=== PATIENT | male | born 1980 | race Caucasian/White ===

== ENCOUNTER → 2019-04-23 13:39 | Outpatient (BNVA) | payer OTHER, SELFPAY | PROVIDERS: Family Provider General Practice; PCP Family Medicine; Visit Provider Nurse Practitioner | DX: R50.9 Fever, unspecified (principal); J10.1 Influenza due to other identified influenza virus with other respiratory manifestations | CPT/HCPCS: 87804 ==

== ENCOUNTER 2023-01-05 21:00 | Emergency (ER) | payer SELFPAY ==
[2023-01-05 21:08] VITALS: BP 130/79; PULSE 89; RESP 24; TEMP 37.1; O2SAT 99; BMI 25.8
--- NOTE | 2023-01-05 21:18 | XRR_ITS ---
PROCEDURE INFORMATION: Exam: XR Left Forearm Exam date and time: 01/05/2023 9:34 PM Age: 42 years old Clinical indication: Injury or trauma; Fall; Blunt trauma (contusions or hematomas); Arm, lower; Left TECHNIQUE: Imaging protocol: Radiologic exam of the left forearm. Views: 2 views. COMPARISON: No relevant prior studies available. FINDINGS: Bones/joints: No acute fracture or dislocation is noted. The skeletal structures seem age-appropriate. Soft tissues: Unremarkable. XR/XR forearm LT 2V [id number] IMPRESSION: No acute findings.
--- NOTE | 2023-01-05 21:18 | CTR_ITS ---
PROCEDURE INFORMATION: Exam: CT Maxillofacial Without Contrast; Mandible Exam date and time: 01/05/2023 9:25 PM Age: 42 years old Clinical indication: Injury or trauma; Fall; Blunt trauma (contusions or hematomas); Right; Prior surgery; Surgery date: 6+ months; Surgery type: Oral rods; Patient HX: Fell off a tralier and hit jaw TECHNIQUE: Imaging protocol: Computed tomography maxillofacial without contrast. Exam focused on the mandible. Radiation optimization: All CT scans at this facility use at least one of these dose optimization techniques: automated exposure control; mA and/or kV adjustment per patient size (includes targeted exams where dose is matched to clinical indication); or iterative reconstruction. REPORTING DATA: Count of CT and Cardiac NM exams in prior 12 months: This patient has received 0 known CTs and 0 known cardiac nuclear medicine studies in the 12 months prior to the current study. COMPARISON: No relevant prior studies available. RADIATION DOSE METRICS: Total DLP (mGy-cm): 595 FINDINGS: Bones/joints: Mandible is unremarkable. No acute fracture. The patient is edentulous. Oral rods are present. Paranasal sinuses: No air-fluid levels. Only trace right lower maxillary sinus mucosal thickening. Soft tissues: Unremarkable. CT/CT facial bones wo con* [id number] IMPRESSION: Unremarkable mandible.
--- NOTE | 2023-01-05 21:21 | W.ED.TRAUMA ---
HPI - Trauma General: Chief Complaint: Trauma Stated Complaint: hurt mouth and left arm Time Seen by Provider: 01/05/23 21:07 Source: patient Mode of arrival: ambulatory Limitations: no limitations History of Present Illness: 42-year-old male states that he is unloading a trailer and fell he states he hit his right side very distraught when he had fell onto the trailer he has jaw pain he rates an 8 out of 10 denies hitting his head denies any headache denies any neck pain he states he also hit his left arm has a contusion to left forearm he has some mild pain there is full range of motion. Associated symptoms: Denies abdominal pain, back pain, chest pain, chills, dental pain, fever(s), headache(s), nausea or vomiting Review of Systems Const: Denies: fever(s) or chills Eyes: Denies: blurry vision or eye discomfort ENMT: Denies: throat pain or dental pain Card: Denies: chest pain Resp: Denies: dyspnea GI: Denies: abdominal pain, nausea, vomiting or diarrhea Musc: Reports: extremity pain; Denies: neck pain or back pain Skin/Breast: Denies: rash Neuro: Denies: headache(s) PFSH ED PFSH: Social History Smoking and tobacco/nicotine status: current every day tobacco/nicotine user Physical Exam Const: COMMON NORMALS: no acute distress, patient oriented x3 and healthy appearing HENMT: COMMON NORMALS: normocephalic and atraumatic HEAD & SCALP: normocephalic and atraumatic OTHER: Tenderness over right jaw patient has dentures in place Eye: COMMON NORMALS: Equal, round and reactive pupils present and EOMs intact bilaterally PUPIL: Yes Equal, round and reactive pupils present Neck/C-Spine: COMMON NORMALS: full ROM and supple Chest: COMMONS NORMALS: normal inspection of the chest and normal palpation of entire chest wall Resp: COMMON NORMALS: normal respiratory effort, No retractions, No use of accessory muscles and clear to auscultation bilaterally AUSCULTATION: clear to auscultation bilaterally Cardio: COMMON NORMALS: regular rate, regular rhythm and No murmurs present (Cardio) RATE: regular rate RHYTHM: regular rhythm GI: COMMON NORMALS: Normal to inspection, nondistended, normoactive bowel sounds present, Soft to palpation, non-tender and no masses PALPATION: Yes Soft to palpation Extremity: NARRATIVE EXTREMITY EXAM: Contusion to left forearm no obvious deformities has full range of motion Neuro: COMMON NORMALS: patient oriented x3, moves all extremities and no focal motor deficits Psych: COMMON NORMALS: mental status grossly normal, Normal thought process present and cooperative THOUGHT PROCESS: Normal thought process present Skin: COMMON NORMALS: no rashes or lesions noted and no wounds GENERAL SKIN EXAM: no rashes or lesions noted Course Vital Signs: Vital signs: Vital Signs Temperature 98.7 F 01/05/23 21:08 Pulse Rate 89 01/05/23 21:08 Respiratory Rate 24 H 01/05/23 21:08 Blood Pressure 130/79 01/05/23 21:08 Pulse Oximetry 99 01/05/23 21:08 Oxygen Delivery Me thod Room Air 01/05/23 21:08 MDM - Trauma Medical Decision Making Patient presents here with jaw contusion along with arm contusion from a fall CT scan here is normal. She is stable for discharge she is to follow-up with PCP and return if worsening. Medical Records I reviewed the patient's medical records. Lab Data Radiology Impressions Face CT 01/05/23 21:18 IMPRESSION: Unremarkable mandible. Forearm X-Ray 01/05/23 21:18 IMPRESSION: No acute findings. All radiology interpretation(s) finalized by discharge Discharge Plan Discharge Patient Disposition: Home Clinical Impression: Fall, Jaw pain, Contusion Condition: Stable Prescriptions: New hydrocodone-acetaminophen 5-325 mg tablet 1 tab PO Q6H PRN (Reason: pain) Qty: 14 0RF No Action lisinopril 10 mg tablet 10 mg PO DAILY bupropion HCl [Wellbutrin SR] 100 mg tablet sustained-release 12 hr 100 mg PO DAILY Discharge Orders: Discharge ED (Routine); Ordered 01/05/23 Ordered By: Jasson Quigley Referrals: Malaika Christianson MD [Primary Care Provider] - 1-3 days Discharge Diet: Advance as tolerated Discharge Activity: Resume usual activity Patient Instructions: Contusion in Adults (ED) Coding Level of Care Code ED Certified [employer] Pat[employer] for Aurelio Romero
[2023-01-05] MEDS: morphine 4 mg/mL SDV 1 mL IM (21:23)
[2023-01-05 22:36] VITALS: PULSE 84; RESP 16; O2SAT 98
== END 2023-01-05 22:35 | disposition home or self-care (01) ==
PROVIDERS: Emergency Provider Emergency Medicine; PCP Family Medicine
DX: R68.84 Jaw pain (principal); S00.83XA Contusion of other part of head, initial encounter; W19.XXXA Unspecified fall, initial encounter
CPT/HCPCS: 70486; 73090; 96372; 99284; J2270

== ENCOUNTER 2023-11-21 18:56 | Emergency (ER) | payer SELFPAY ==
[2023-11-21 19:05] VITALS: BP 131/71; PULSE 87; RESP 18; TEMP 36.9; O2SAT 98; BMI 25.8
--- NOTE | 2023-11-21 19:09 | XRR_ITS ---
PROCEDURE INFORMATION: Exam: XR Right Tibia and Fibula Exam date and time: 11/21/2023 7:19 PM Age: 43 years old Clinical indication: Right; Patient HX: RT lower leg pain post fall from ladder TECHNIQUE: Imaging protocol: Radiologic exam of the right tibia and fibula. Views: 2 views. COMPARISON: No relevant prior studies available. FINDINGS: Bones/joints: No acute fracture or dislocation. Soft tissues: Soft tissues are unremarkable as visualized. XR/XR tibia fibula RT 2V [id number] IMPRESSION: No acute fracture or dislocation.
--- NOTE | 2023-11-21 19:09 | XRR_ITS ---
PROCEDURE INFORMATION: Exam: XR Left Hand Exam date and time: 11/21/2023 7:19 PM Age: 43 years old Clinical indication: Left; Patient HX: Lt wrist/hand pain post fall from ladder TECHNIQUE: Imaging protocol: Radiologic exam of the left hand. Views: 3 or more views. COMPARISON: CR XR wrist LT min 3V* [id number] 11/21/2023 7:19 PM FINDINGS: Bones/joints: No acute fracture or dislocation. Soft tissues: Soft tissues are unremarkable as visualized. XR/XR hand LT min 3V* [id number] IMPRESSION: No acute fracture or dislocation.
--- NOTE | 2023-11-21 19:09 | XRR_ITS ---
PROCEDURE INFORMATION: Exam: XR Left Wrist Exam date and time: 11/21/2023 7:19 PM Age: 43 years old Clinical indication: Pain; Hand; Left; Additional info: Lt wrist/hand pain post fall from ladder TECHNIQUE: Imaging protocol: Radiologic exam of the left wrist. Views: 3 or more views. COMPARISON: CR XR hand LT min 3V* [id number] 11/21/2023 7:19 PM FINDINGS: Bones/joints: No acute fracture or dislocation. Soft tissues: Soft tissues are unremarkable as visualized. XR/XR wrist LT min 3V* [id number] IMPRESSION: No acute fracture or dislocation.
--- NOTE | 2023-11-21 19:09 | XRR_ITS ---
PROCEDURE INFORMATION: Exam: XR Right Hip Exam date and time: 11/21/2023 7:19 PM Age: 43 years old Clinical indication: Patient HX: Bilateral hip pain post fall from ladder TECHNIQUE: Imaging protocol: Radiologic exam of the right hip. Views: 1 view hip with pelvis when performed. COMPARISON: No relevant prior studies available. FINDINGS: Bones/joints: No acute fracture or dislocation. Soft tissues: Soft tissues are unremarkable as visualized. XR/XR hip RT 2-3V wo/w pel* [id number] IMPRESSION: No acute fracture or dislocation.
--- NOTE | 2023-11-21 19:29 | XRR_ITS ---
PROCEDURE INFORMATION: Exam: XR Left Hip Exam date and time: 11/21/2023 7:34 PM Age: 43 years old Clinical indication: Patient HX: Bilateral hip pain post fall from ladder TECHNIQUE: Imaging protocol: Radiologic exam of the left hip. Views: 2 or 3 views hip with pelvis when performed. COMPARISON: No relevant prior studies available. FINDINGS: Bones/joints: No acute fracture or dislocation. Soft tissues: Soft tissues are unremarkable as visualized. XR/XR hip LT 2-3V wo/w pel* [id number] IMPRESSION: No acute fracture or dislocation.
--- NOTE | 2023-11-22 00:50 | W.ED.FALL ---
HPI - Fall General: Chief Complaint: Fall Stated Complaint: fall, off 15 foot ladder Time Seen by Provider: 11/21/23 23:59 Source: patient Mode of arrival: ambulatory Limitations: no limitations History of Present Illness: Patient is a 43-year-old male present to the emergency department after falling off a ladder yesterday. Fall was approximately 15 feet. States this was accidental, he landed on his tool belt and is having pain to bilateral hips, right lower extremity, and left hand and wrist. No obvious deformity noted on arrival. Does not report taken anything for pain, however he does note significant limited range of motion with his left hand. Did not hit his head or lose consciousness. No other concerning historical factors or symptoms reported at this time. MD complaint: fall Onset (ago): day(s) Fall from: from height (distance) (15 feet) Fall witnessed: yes, by family Place fall occurred: home Loss of consciousness: None Prolonged down time: no Symptoms prior to fall: none Associated symptoms-after fall: Denies abdominal pain, chest pain, headache(s), lightheadedness or neck pain Related Data Home Medications Medication Instructions Recorded Confirmed bupropion HCl 100 mg tablet,12 hr 100 mg PO DAILY 04/23/19 04/23/19 sustained-release (Wellbutrin SR) lisinopril 10 mg tablet 10 mg PO DAILY 04/23/19 04/23/19 Previous Rx's Medication Instructions Recorded hydrocodone 5 mg-acetaminophen 325 1 tab PO Q6H PRN pain #14 tabs 10/16/23 mg tablet Allergies Allergy/AdvReac Type Severity Reaction Status Date / Time No Known Allergies Allergy Verified 04/23/19 13:27 Review of Systems General: Reports: 10 or more systems reviewed and unremarkable except in HPI and below Const: Reports: other (Fall); Denies: fever(s), chills or fatigue Eyes: Denies: change in vision ENMT: Denies: throat pain, ear or mastoid pain or nasal discharge Card: Denies: chest pain, palpitations, swelling of feet/ankles or lightheadedness Resp: Denies: dyspnea, productive cough or wheezing GI: Denies: abdominal pain, nausea, vomiting, diarrhea or constipation : Denies: flank pain, difficulty urinating, dysuria or urinary frequency Musc: Reports: extremity pain (Left hand and right lower extremity) and joint pain (Bilateral hips, left wrist); Denies: neck pain or back pain Skin/Breast: Denies: rash Neuro: Denies: headache(s), numbness in extremities or weakness in extremities PFSH ED PFSH: Social History Smoking and tobacco/nicotine status: current every day tobacco/nicotine user Physical Exam Const: COMMON NORMALS: no acute distress, patient oriented x3 and no limitations GENERAL APPEARANCE: cooperative, comfortable and well developed ORIENTATION/CONSCIOUSNESS: Yes awake, Yes oriented to person, Yes oriented to place and Yes oriented to time HENMT: COMMON NORMALS: normocephalic, atraumatic and hearing grossly normal bilaterally HEAD & SCALP: normocephalic and atraumatic Eye: COMMON NORMALS: Equal, round and reactive pupils present, EOMs intact bilaterally and conjunctivae normal CONJUNCTIVA: Yes conjunctivae normal PUPIL: Yes Equal, round and reactive pupils present Neck/C-Spine: COMMON NORMALS: full ROM, supple and no JVD Resp: COMMON NORMALS: normal respiratory effort, No retractions, No use of accessory muscles and clear to auscultation bilaterally AUSCULTATION: clear to auscultation bilaterally Cardio: COMMON NORMALS: no JVD, regular rate, regular rhythm, No clicks present (Cardio), No murmurs present (Cardio) and No rub (Cardio) RATE: regular rate RHYTHM: regular rhythm GI: COMMON NORMALS: Normal to inspection, nondistended, normoactive bowel sounds present, Soft to palpation and non-tender AUSCULTATION: Yes normoactive bowel sounds PALPATION: Yes Soft to palpation RECTAL EXAM: Yes deferred Back/Pelvis: COMMON NORMALS: thoracic and lumbar spine normal to inspection, no thoracic nor lumbar tenderness and thoraco-lumbar ROM normal Extremity: COMMON NORMALS: full ROM, capillary refill normal, no joint enlargement and no clubbing, cyanosis or edema NARRATIVE EXTREMITY EXAM: Supplementation range of motion at the left wrist, however no obvious signs of deformity or injury. Tender to palpation over the wrist joint, primarily to the dorsal aspect. Good radial pulse and distal neurovascular status intact. His bilateral hip joints are tender to palpation, primarily to the lateral aspect. Again no obvious signs of deformity. Mild swelling noted to the lateral right ankle, this area is tender to palpation. No bruising and distal pulses and neurovascular status intact Neuro: COMMON NORMALS: patient oriented x3, CN's II-XII intact bilaterally, moves all extremities, no focal motor deficits and no sensory deficits noted SENSORIUM/ORIENTATION: Yes oriented to person, Yes oriented to place and Yes oriented to time Psych: COMMON NORMALS: mental status grossly normal and Normal thought process present THOUGHT PROCESS: Normal thought process present Skin: NARRATIVE SKIN EXAM: Abrasion to left hip Course Vital Signs: Vital signs: Vital Signs Temperature 98.5 F 11/21/23 19:05 Pulse Rate 87 11/21/23 19:05 Respiratory Rate 18 11/21/23 19:05 Blood Pressure 131/71 11/21/23 19:05 Pulse Oximetry 98 11/21/23 19:05 Oxygen Delivery Me thod Room Air 11/21/23 19:05 MDM - Fall Medical Decision Making Patient presented after falling, multiple areas reported to be bothering him. These areas were x-rayed, this was his bilateral hips, right tib-fib, and left wrist and hand. All did not demonstrate any acute abnormalities. All of his injuries likely contusion and sprains, can be treated conservatively and this is discussed with the patient. If he continues to have pain with his hand, due to potentially a latent carpal bone injury, he is instructed to follow-up with primary care for repeat imaging. He did not hit his head or have any other concerning symptoms or historical factors to report. His vitals were normal and stayed stable throughout his ED course. He will be discharged home and return precautions given. Lab Data Radiology Impressions Hand X-Ray 11/21/23 19:09 IMPRESSION: No acute fracture or dislocation. Tibia/Fibula X-Ray 11/21/23 19:09 IMPRESSION: No acute fracture or dislocation. Wrist X-Ray 11/21/23 19:09 IMPRESSION: No acute fracture or dislocation. Hip/Pelvis X-Ray 11/21/23 19:29 IMPRESSION: No acute fracture or dislocation. All radiology interpretation(s) finalized by discharge Discharge Plan Discharge Patient Disposition: Home Clinical Impression: Sprain of hand, left, Sprain of left wrist, Contusion of hip, left, Right ankle sprain, Fall Condition: Stable Prescriptions: No Action lisinopril 10 mg tablet 10 mg PO DAILY bupropion HCl [Wellbutrin SR] 100 mg tablet sustained-release 12 hr 100 mg PO DAILY hydrocodone-acetaminophen 5-325 mg tablet 1 tab PO Q6H PRN (Reason: pain) Qty: 14 0RF Discharge Orders: Discharge ED (Routine); Ordered 11/22/23 Ordered By: Yaya Monterroso Referrals: Malaika Christianson MD [Primary Care Provider] - Discharge Diet: Usual diet Discharge Activity: Increase activity as tolerated Patient Instructions: Sprain (ED), Contusion in Adults (ED), Pain Management Activity Restrictions/Additional Instructions: Your x-rays today were all negative for any acute fracture or dislocation. With all affected extremities, please rest, ice, use compression, and elevate as discussed. Take Tylenol and ibuprofen for pain. Gentle range of motion exercises as tolerated. Please follow-up with primary care if you continue to have persistence of pain for reimaging, and return with any new or concerning symptoms you may have. Coding Level of Care Code ED Sale Professional [employer] Marketing for Aurelio Romero
== END 2023-11-22 00:15 | disposition home or self-care (01) ==
PROVIDERS: Emergency Provider Physician Assistant; PCP Family Medicine
DX: S70.02XA Contusion of left hip, initial encounter (principal); S63.92XA Sprain of unspecified part of left wrist and hand, initial encounter; S63.502A Unspecified sprain of left wrist, initial encounter; S93.401A Sprain of unspecified ligament of right ankle, initial encounter; Z72.0 Tobacco use; W11.XXXA Fall on and from ladder, initial encounter
CPT/HCPCS: 73110; 73130; 73502; 73590; 99284